=== PATIENT | male | born 1955 | race African-American/Black ===

== ENCOUNTER 2019-01-04 20:32 | Emergency (ER) | payer MEDICAID ==
[~2019-01-04] VITALS: Ht 177.8 cm; Wt 102.1 kg
[2019-01-04 20:43] VITALS: BP 145/90
--- NOTE | 2019-01-04 20:43 | NUR ---
ED Nurse Note: Patient walked in to ER due to complaints of SOB and dry cough x2 months ago. Has history of COPD and right side pain. Alert and oriented, verbally responisve. No SOB at the moment. Breathing even and unlabored. 99% on RA. Afebrile. VSS.
[2019-01-04] MEDS ORDERED: BENAZEPRIL HCL5 MG ORAL (20:45)
[2019-01-04] MEDS ORDERED: NORVASC10 MG ORAL (20:45)
[2019-01-04] MEDS ORDERED: QVAR7.3 GM INH (20:45)
[2019-01-04] MEDS ORDERED: HYDROCHLOROTHIA25 MG ORAL (20:45)
[2019-01-04] MEDS ORDERED: VENTOLIN HFA18 GM INH (20:45)
--- NOTE | 2019-01-04 21:02 | Emergency Room Report ---
History of Present Illness General Chief Complaint: Upper Respiratory Illness Source: Patient Present Illness HPI This is 63-year-old male with a history high blood pressure. He was diagnosed by his primary care doctor with COPD. He presents with chief complaint of shortness of breath and chest pain to the right side. Is been ongoing for over a month. He has an appointment with a lung specialist but will not be until a month from now. Denies any nausea vomiting. [place] short of breath. [place] soreness to that side. No weight loss. Nonproductive cough. Better with his inhaler. No nausea no vomiting. No fever chills but denies any other complaint. No chest pain. No exertional component. No diaphoresis. Allergies: Coded Allergies: No Known Allergies (Unverified , 01/04/19) Patient History Past Medical History: see triage record, old chart reviewed, HTN, COPD Past Surgical History: none Pertinent Family History: none Social History: Denies: smoking - 30 years ago, quit Immunizations: other Reviewed Nursing Documentation: PMH: Agreed; PSxH: Agreed Nursing Documentation-PMH Hx Hypertension: Yes Hx COPD: Yes Review of Systems Eye: Denies: eye pain, blurred vision ENT: Denies: ear pain, nose congestion, throat swelling Respiratory: Reports: cough, shortness of breath Cardiovascular: Denies: palpitations Gastrointestinal: Denies: abdominal pain, diarrhea, nausea, vomiting Musculoskeletal: Denies: back pain, joint pain Skin: Denies: rash Neurological: Denies: headache, numbness Endocrine: Denies: increased thirst, increased urine Hematologic/Lymphatic: Denies: easy bruising All Other Systems: negative except mentioned in HPI Physical Exam Vital Signs Date Time Temp Pulse Resp B/P (MAP) Pulse Ox O2 Delivery O2 Flow Rate FiO2 01/04/19 20:34 97.9 95 16 145/90 (108) 98 Room Air Vitals normal Sp02 EP Interpretation: reviewed, normal General Appearance: well appearing, no apparent distress, alert Head: normocephalic, atraumatic Eyes: bilateral eye PERRL, bilateral eye EOMI ENT: hearing grossly normal, normal pharynx Neck: full range of motion, supple, no meningismus Respiratory: chest non-tender, lungs clear, normal breath sounds Cardiovascular #1: regular rate, rhythm, no murmur Gastrointestinal: normal bowel sounds, non tender, no mass, no organomegaly, no bruit, non-distended Musculoskeletal: back normal, gait/station normal, normal range of motion Psychiatric: mood/affect normal Medical Decision Making Diagnostic Impression: Primary Impression: Cough Additional Impression: Chest wall pain, chronic ER Course Patient presents with a chronic cough and chest wall pain. No evidence of ACS, PE, dissection to name a few. The cough may be secondary to his KISHAN inhibitor or his calcium channel jayleen. No evidence of infection. 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 No evidence of any leak. This can be as an outpatient. Will discharge home. Rhythm Strip Diag. Results EP Interpretation: yes Rate: 80 Rhythm: NSR, no PVC's, no ectopy Chest X-Ray Diagnostic Results Chest X-Ray Diagnostic Results : Chest X-Ray Ordered: Yes # of Views/Limited/Complete: 1 View Indication: Chest Pain EP Interpretation: Yes Interpretation: no consolidation, no effusion, no pneumothorax, no acute cardiopulmonary disease Impression: No acute disease Electronically Signed by: Eldon King MD CT/MRI/US Diagnostic Results CT/MRI/US Diagnostic Results : Imaging Test Ordered: CT chest Impression Read by radiologist. 4cm ascending aorta aneurysm. Last Vital Signs Date Time Temp Pulse Resp B/P (MAP) Pulse Ox O2 Delivery O2 Flow Rate FiO2 01/04/19 20:34 97.9 95 16 145/90 (108) 98 Room Air Status: improved Disposition: HOME, SELF-CARE Condition: Stable Scripts Ibuprofen* (MOTRIN*) 600 Mg Tablet 600 MG ORAL THREE TIMES A DAY, #30 TAB 0 Refills Prov: Eldon King MD 01/04/19 Additional Instructions: Follow-up with your doctor in 7 days. Return if symptoms worsen. Eldon King MD Jan 04, 2019 21:02
[2019-01-04 21:35] LABS: HEMATOCRIT 44.6 % (42.0-52.0); HEMOGLOBIN 15.2 G/DL (14.2-18.0); MEAN CORPUSCULAR VOLUME 85 FL (80-99); PLATELET COUNT 282 K/UL (150-450); RED BLOOD COUNT 5.24 M/UL (4.70-6.10); RED CELL DISTRIBUTION WIDTH 11.1 % (11.6-14.8); WHITE BLOOD COUNT 6.6 K/UL (4.8-10.8)
[2019-01-04 21:47] LABS: ANION GAP 7 mmol/L (5-15); BLOOD UREA NITROGEN 14 mg/dL (7-18); CALCIUM 9.9 MG/DL (8.5-10.1); CARBON DIOXIDE 29 MMOL/L (21-32); CHLORIDE 101 MMOL/L (98-107); CREATININE 1.2 MG/DL (0.55-1.30); POTASSIUM 4.1 MMOL/L (3.5-5.1); SODIUM 137 MMOL/L (136-145)
[2019-01-04] MEDS ORDERED: Omnipaue 350mg/ml 100ml vial INJ PRN (22:15)
--- NOTE | 2019-01-04 22:20 | NUR ---
ED Nurse Note: Pt taken to CT via w/c.
--- NOTE | 2019-01-04 22:31 | NUR ---
ED Nurse Note: Came back from CT.
[2019-01-04 23:15] VITALS: BP 139/81
--- NOTE | 2019-01-04 23:17 | Diagnostic Imaging Report ---
ndication: Shortness of breath Technique: IV administration nonionic contrast. Spiral acquisitions obtained from the lung bases to the lung apices. Multiplanar and 3-D reconstructions were generated. Total dose length product 870 mGycm. CTDIvol(s) 18, 34, 21 mGy. Dose reduction achieved using automated exposure control Comparison: none Findings: No intraluminal filling defects or other findings to suggest acute pulmonary embolus are identified. Normal caliber pulmonary arteries. No evidence of right ventricular dilatation. The ascending thoracic aorta is ectatic but not frankly aneurysmal, measuring 4 cm in diameter. There is normal variant common origin of the right brachiocephalic and left common carotid arteries, otherwise normal branching anatomy and caliber of the great neck vessels. There is a small focal groundglass opacity in the superior segment of the left lower lobe, image 49 of series 4. This measures approximately 8 mm diameter. The lungs and pleural spaces are otherwise clear. No infiltrates, effusions, masses, or nodules. No mediastinal or hilar mass or adenopathy. Normal heart size. No pericardial effusion. There is a small sliding-type hiatal hernia, otherwise unremarkable esophagus. The thyroid is unremarkable. No axillary or chest wall mass or adenopathy demonstrated. The included upper abdominal anatomy is unremarkable. Impression: Negative for evidence of acute pulmonary embolus or other acute thoracic pathology Ectatic ascending thoracic aorta, 4 cm Small hiatal hernia incidentally noted The above findings are essentially in agreement with the [facility] preliminary report Superior segment left lower lobe 8 mm groundglass opacity. Recommend 6-12 month short interval follow-up CT. This was not described on the preliminary report. Discrepant findings phoned to Dr. Castaneda at the time of interpretation The CT scanner at [facility] is accredited by the [employer] and the scans are performed using protocols designed to limit radiation exposure to as low as reasonably achievable to attain images of sufficient resolution adequate for diagnostic evaluation.
[2019-01-04] MEDS ORDERED: IBUPROFEN600 MG ORAL (23:34)
[2019-01-04 23:40] VITALS: BP 139/81
--- NOTE | 2019-01-04 23:40 | NUR ---
ED Nurse Note: Pt cleared by ERMD for discharge. DC instructions/prescription was given and explained to pt and verbalized understanding of teachings. All medical devices such as ID band and IV line removed. Pt is AAO x4, ambulatory and left with all personal belongings.
--- NOTE | 2019-01-05 10:51 | Diagnostic Imaging Report ---
Indication: Shortness of breath Technique: One view of the chest Comparison: none Findings: Lungs and pleural spaces are clear. Heart size is normal. Impression: No acute process
== END 2019-01-04 23:40 | disposition home or self-care (01) ==
LOC: EMR 21:08
DX: R07.89 Other chest pain (principal); R05 Cough; J44.9 Chronic obstructive pulmonary disease, unspecified; I10 Essential (primary) hypertension
CPT/HCPCS: 36415; 71045; 71275; 80048; 85007; 85025; Q9967; Z7502; 99284